=== PATIENT | female | born 1995 | race African-American/Black ===

== ENCOUNTER 2018-08-28 04:38 | Emergency (ER) | payer MEDICAID ==
[~2018-08-28] VITALS: Ht 160 cm; Wt 47.7 kg
[~2018-08-28 04:38] MED LIST: PNV1TABL76 MT
[2018-08-28 04:51] VITALS: BP 133/65
== END 2018-08-28 05:30 | disposition left against medical advice (07) ==
LOC: ER 04:38
DX: M79.641 Pain in right hand (principal); M79.642 Pain in left hand; Z53.21 Procedure and treatment not carried out due to patient leaving prior to being seen by health care provider

== ENCOUNTER 2024-05-10 10:51 | Emergency (ER) | payer MEDICAID ==
[~2024-05-10] VITALS: Ht 165.1 cm; Wt 60.0 kg
[2024-05-10 11:14] VITALS: O2SAT 100
[2024-05-10 15:13] LABS: CLARITY URINE CLOUDY (CLEAR); COLOR URINE YELLOW (YELLOW); GLUCOSE URINE NEGATIVE (NEGATIVE); KETONES URINE NEGATIVE (NEGATIVE); LEUKOCYTE ESTERASE URINE NEGATIVE (NEGATIVE); NITRITE URINE NEGATIVE (NEGATIVE); OCCULT BLOOD URINE NEGATIVE (NEGATIVE); PH URINE 6.5 (4.5-8.0); PROTEIN URINE NEGATIVE (NEGATIVE); SPECIFIC GRAVITY URINE 1.022 (1.005-1.030)
[2024-05-10 15:45] LABS: BASOPHILS % 0.7 % (0.0-2.0); CHLORIDE 106 mEq/L (98-107); EOSINOPHILS % 0.4 % (0.0-5.0); HEMATOCRIT. 41.5 % (36.0-48.0); HEMOGLOBIN. 13.5 g/dL (12.0-16.0); LYMPHOCYTES % 19.9 % (20.0-50.0); MEAN CORPUSCULAR HEMOGLOBIN 29.7 pg (28.0-32.0); MEAN CORPUSCULAR HGB CONC 32.6 g/dL (31.0-37.0); MEAN CORPUSCULAR VOLUME 91.1 fL (81.0-99.0); MEAN PLATELET VOLUME 9.2 fl (7.4-10.4); MONOCYTES % 5.5 % (2.0-8.0); NEUTROPHILS % 73.5 % (40.0-76.0); PLATELET 244 x1000/uL (130-400); POTASSIUM 3.3 mEq/L (3.5-5.1); RED BLOOD CELL COUNT 4.56 mill/uL (4.2-5.4); RED CELL DISTRIBUTION WIDTH 15.2 % (11.6-14.6); SODIUM 138 mEq/L (136-145); WHITE BLOOD COUNT 8.1 x1000/uL (4.5-11.0)
[2024-05-10 15:46] LABS: CALCIUM 9.9 mg/dL (8.7-10.4); CARBON DIOXIDE 27 mEq/L (21-32)
[2024-05-10 15:50] LABS: BACTERIA URINE 3+; RBC URINE 0-2 /hpf (0-2); SQUAMOUS EPITHELIAL CELL URINE 2+ /lpf (RARE/1+); WBC URINE 0-2 /hpf (0-2)
[2024-05-10 15:51] LABS: CREATININE 0.8 mg/dL (0.6-1.0); GLUCOSE 96 mg/dL (70-105); UREA NITROGEN BLOOD 8 mg/dL (9-23)
[2024-05-10] MEDS ORDERED: IBUP-2029 MT (16:08)
[2024-05-10] MEDS: KETOROLAC 30MG/ML VIAL IM ONE (16:20)
[2024-05-10 16:27] LABS: B-HCG QUANTITATIVE < 1 mIU/mL (<3)
[2024-05-10 16:28] VITALS: BP 122/70; PULSE 68; RESP 18; TEMP 36.78072; O2SAT 100
[2024-05-11 12:27] LABS: UCG SCREEN NEGATIVE
== END 2024-05-10 16:28 | disposition home or self-care (01) ==
LOC: ER 10:51
DX: N83.201 Unspecified ovarian cyst, right side (principal)
CPT/HCPCS: 99285; 76830; 76856; 80048; 81003; 81025; 84702; 85025; 86850; 86900; 86901; 36415; 96372; J1885